=== PATIENT | female | born 1985 | race African-American/Black ===

== ENCOUNTER 2019-01-22 07:19 | Emergency (ER) | payer MEDICARE, MEDICAID ==
--- NOTE | 2019-01-22 07:24 | ER Report ---
History and Physical Time Seen By MD: 07:24 HPI/ROS Paramedics called by friends due to the patient's excessive vomiting. Patient admits to drinking alcohol heavily last night. Known DM with insulin pump. Pump was disconnected when paramedics arrived and blood glucose in 400s. Patient is clearly intoxicated during interview, and her only complaint is feeling nauseous. Denies any other substance use. Denies trauma. Is in town with co- workers for a conference. Remainder of the 14 system rev: Yes Allergies: Coded Allergies: peanut (Verified Allergy, Severe, 01/22/19) Penicillins (Verified Allergy, Unknown, 01/22/19) Reviewed Nurses Notes: Yes Old Medical Records Reviewed: Yes Constitutional Vital Sign - Last 24 Hours 01/22/19 01/22/19 01/22/19 01/22/19 07:19 07:20 07:21 07:30 Temp 96.8 Pulse ??? 86 Resp 16 B/P (MAP) 118/86 118/86 (97) 118/103 (108) Pulse Ox 98 O2 Delivery Nasal Cannula 01/22/19 01/22/19 01/22/19 01/22/19 07:34 07:49 08:00 08:04 Pulse 87 86 85 Resp 14 12 19 B/P (MAP) 154/99 (117) Pulse Ox 100 100 01/22/19 01/22/19 01/22/19 01/22/19 08:19 08:30 08:34 08:49 Pulse 84 78 ??? B/P (MAP) 144/105 (118) Pulse Ox 100 100 01/22/19 01/22/19 01/22/19 01/22/19 08:54 09:00 09:09 09:24 Pulse ? B/P (MAP) 162/90 (114) Pulse Ox 89 01/22/19 01/22/19 01/22/19 01/22/19 09:30 09:39 09:44 09:59 Pulse 92 98 ??? B/P (MAP) 154/99 (117) Pulse Ox 90 92 01/22/19 01/22/19 01/22/19 01/22/19 10:00 10:14 10:29 10:30 Pulse 76 92 B/P (MAP) 161/107 (125) 156/92 (113) Pulse Ox 97 96 01/22/19 01/22/19 01/22/19 01/22/19 10:44 10:59 11:00 11:14 Pulse 85 91 93 B/P (MAP) 168/97 (120) Pulse Ox 99 96 95 01/22/19 01/22/19 01/22/19 01/22/19 11:19 11:30 11:34 11:49 Pulse 86 87 86 B/P (MAP) 163/96 (118) Pulse Ox 94 98 99 01/22/19 01/22/19 01/22/19 01/22/19 11:54 12:00 12:09 12:24 Pulse 83 85 85 B/P (MAP) 156/91 (112) Pulse Ox 98 99 100 01/22/19 01/22/19 01/22/19 12:30 12:39 12:54 Pulse 91 89 B/P (MAP) 153/89 (110) Pulse Ox 95 93 Physical Exam General Appearance: The patient is alert, has no immediate need for airway protection and no current signs of toxicity. Eyes: Pupils equal and round no injection. Respiratory: Chest is non tender, lungs are clear to auscultation. Cardiac: regular rate and rhythm Gastrointestinal: Abdomen is soft and non tender, no masses, bowel sounds normal. There is an insulin pump in place. Neck: Neck is supple and non tender. Extremities have full range of motion and are non tender. Skin: No rashes or lesions. Medical Decision Making Data Points Result Diagram: 01/22/19 0752 01/22/19 0752 Laboratory Hematology Test 01/22/19 07:52 01/22/19 13:03 Red Blood Count 4.49 M/uL (4.17-5.56) Mean Corpuscular Volume 88.0 fL (80.0-96.0) Mean Corpuscular Hemoglobin 28.3 pg (26.0-33.0) Mean Corpuscular Hemoglobin Concent 32.2 g/dL (32.0-36.0) Red Cell Distribution Width 13.9 % (11.5-14.5) Mean Platelet Volume 8.3 fL (7.2-11.1) Neutrophils (%) (Auto) 80.5 % (39.4-72.5) Lymphocytes (%) (Auto) 13.0 % (17.6-49.6) Monocytes (%) (Auto) 4.5 % (4.1-12.4) Eosinophils (%) (Auto) 1.3 % (0.4-6.7) Basophils (%) (Auto) 0.7 % (0.3-1.4) Nucleated RBC Relative Count (auto) 0.0 /100WBC Neutrophils # (Auto) 9.9 K/uL (2.0-7.4) Lymphocytes # (Auto) 1.6 K/uL (1.3-3.6) Monocytes # (Auto) 0.6 K/uL (0.3-1.0) Eosinophils # (Auto) 0.2 K/uL (0.0-0.5) Basophils # (Auto) 0.1 K/uL (0.0-0.1) Nucleated RBC Absolute Count (auto) 0.00 K/uL Sodium Level 138 mmol/L (137-145) Potassium Level 4.4 mmol/L (3.5-5.0) Chloride Level 105 mmol/L (98-107) Carbon Dioxide Level 22 mmol/L (22-31) Blood Urea Nitrogen 18 mg/dl (7-18) Creatinine 1.10 mg/dl (0.52-1.04) Glomerular Filtration Rate Calc 57.9 Random Glucose 425 mg/dl (75-110) Calcium Level 8.4 mg/dl (8.4-10.2) Total Bilirubin 0.2 mg/dl (0.2-1.3) Aspartate Amino Transf (AST/SGOT) 37 U/L (0-35) Alanine Aminotransferase (ALT/SGPT) 21 U/L (0-56) Alkaline Phosphatase 117 U/L (0-126) Total Protein 6.6 g/dl (6.3-8.2) Albumin 3.6 g/dl (3.5-5.0) Lipase 55 U/L (23-300) Serum Alcohol 123 mg/dl Whole Blood Glucose 329 mg/DL (75-110) Chemistry Test 01/22/19 07:52 01/22/19 13:03 White Blood Count 12.3 k/uL (4.5-11.0) Red Blood Count 4.49 M/uL (4.17-5.56) Hemoglobin 12.7 g/dL (12.0-16.0) Hematocrit 39.5 % (34.0-47.0) Mean Corpuscular Volume 88.0 fL (80.0-96.0) Mean Corpuscular Hemoglobin 28.3 pg (26.0-33.0) Mean Corpuscular Hemoglobin Concent 32.2 g/dL (32.0-36.0) Red Cell Distribution Width 13.9 % (11.5-14.5) Platelet Count 428 K/uL (150-450) Mean Platelet Volume 8.3 fL (7.2-11.1) Neutrophils (%) (Auto) 80.5 % (39.4-72.5) Lymphocytes (%) (Auto) 13.0 % (17.6-49.6) Monocytes (%) (Auto) 4.5 % (4.1-12.4) Eosinophils (%) (Auto) 1.3 % (0.4-6.7) Basophils (%) (Auto) 0.7 % (0.3-1.4) Nucleated RBC Relative Count (auto) 0.0 /100WBC Neutrophils # (Auto) 9.9 K/uL (2.0-7.4) Lymphocytes # (Auto) 1.6 K/uL (1.3-3.6) Monocytes # (Auto) 0.6 K/uL (0.3-1.0) Eosinophils # (Auto) 0.2 K/uL (0.0-0.5) Basophils # (Auto) 0.1 K/uL (0.0-0.1) Nucleated RBC Absolute Count (auto) 0.00 K/uL Glomerular Filtration Rate Calc 57.9 Calcium Level 8.4 mg/dl (8.4-10.2) Total Bilirubin 0.2 mg/dl (0.2-1.3) Aspartate Amino Transf (AST/SGOT) 37 U/L (0-35) Alanine Aminotransferase (ALT/SGPT) 21 U/L (0-56) Alkaline Phosphatase 117 U/L (0-126) Total Protein 6.6 g/dl (6.3-8.2) Albumin 3.6 g/dl (3.5-5.0) Lipase 55 U/L (23-300) Serum Alcohol 123 mg/dl Whole Blood Glucose 329 mg/DL (75-110) Toxicology Test 01/22/19 07:52 Serum Alcohol 123 mg/dl ED Course/Re-evaluation ED Course Moderate to severe alcohol intoxication. The patient drinking excessively witnessed by friends and coworkers. Received multiple liters of IV fluids and antinausea medications while in the emergency department. Insulin pump reconnected. Did not give additional insulin, because the patient at this point is only able to drink liquids. Her glucose did start to down trend bile in the emergency department. She was observed in the emergency department for ap proximately 8 hours. She is able to ambulate safely and is drinking liquids without additional episodes of vomiting. She states that she feels safe for discharge. She was given a prescription for Phenergan and she was discharged with her coworkers driving her home. Decision to Disposition Date: Jan 22, 2019 Decision to Disposition Time: 14:18 Depart Departure Latest Vital Signs Vital Signs Date Time Temp Pulse Resp B/P (MAP) Pulse Ox O2 Delivery O2 Flow Rate FiO2 01/22/19 12:54 89 93 01/22/19 12:30 153/89 (110) 01/22/19 08:04 19 01/22/19 07:20 96.8 Nasal Cannula Impression: Primary Impression: Acute alcohol intoxication Additional Impressions: Nausea & vomiting Hyperglycemia Condition: Improved Disposition: HOME OR SELF-CARE Patient Instructions: Alcohol Intoxication (ED), Diabetic Hyperglycemia (ED) Problem Qualifiers Primary Impression: Acute alcohol intoxication Complication of substance-induced condition: with unspecified complication Qualified Codes: F10.929 - Alcohol use, unspecified with intoxication, unspecified Additional Impressions: Nausea & vomiting Vomiting type: unspecified Vomiting Intractability: intractable Qualified Codes: R11.2 - Nausea with vomiting, unspecified JAMES PEREZ MD Jan 22, 2019 07:24
[2019-01-22] MEDS ORDERED: METOCLOPRAMIDE 10 MG/2 ML SDV IVP ONE (07:25)
[2019-01-22] MEDS ORDERED: NS(*) 0.9% 1000 ML BAG 1,000 ML IV ONE (07:25)
[2019-01-22 08:03] LABS: PLATELET COUNT, AUTOMATED 428 K/uL (150-450)
[2019-01-22] MEDS ORDERED: EMS NS 0.9%(*) 1000 ML BAG 1,000 ML IV ONE (08:10)
[2019-01-22] MEDS ORDERED: LORazepam 2 MG/ML VIAL IVP ONE ×2 (09:15→10:05)
[2019-01-22] MEDS ORDERED: LIDOCAINE 2% VISC SLN 15ML UDC PO ONE (11:20)
[2019-01-22] MEDS ORDERED: MAG HYD/AL HYD/SIMETH 30ML UDC PO ONE (11:20)
[2019-01-22] MEDS ORDERED: HALOPERIDOL LACT 5 MG/ML VIAL IM ONE (11:20)
[2019-01-22] MEDS ORDERED: LR IV ONE (11:25)
[2019-01-22] MEDS ORDERED: PROMETHAZINE HCL 25 MG TAB TH 2 TAB/BOTTLE PO ONE (14:25)
[2019-01-22 14:30] VITALS: BP 153/88
== END 2019-01-22 14:37 | disposition home or self-care (01) ==
LOC: ER 07:39
DX: F10.929 Alcohol use, unspecified with intoxication, unspecified (principal); Y90.6 Blood alcohol level of 120-199 mg/100 ml; R11.2 Nausea with vomiting, unspecified
CPT/HCPCS: 36415; 36416; 82948; 83690; 85025; 96361; 96372; 96374; 96375; 96376; 99284; A9270; G0480; J1630; J2060; J2765; J7030; J7120; 80320; 82040; 82247; 82310; 82374; 82435; 82565; 82947; 84075; 84132; 84155; 84295; 84450; 84460; 84520

== ENCOUNTER → 2019-01-22 | Outpatient (CLI) | payer MEDICARE, MEDICAID | LOC: AMB 06:55 | PROVIDERS: ATTEND Nurse Practitioner | DX: E11.65 Type 2 diabetes mellitus with hyperglycemia (principal); R42 Dizziness and giddiness; R53.83 Other fatigue; R53.1 Weakness | CPT/HCPCS: A0425; A0427 ==